=== PATIENT | female | born 1960 ===

== ENCOUNTER 2021-09-23 11:21 | Emergency (ER) | payer MEDICAID ==
[2021-09-23 12:58] LABS: Basophils % (Auto) 0.5 % (0.0-1.8); Eosinophils % (Auto) 0.6 % (0.0-4.3); Hematocrit 39.5 % (30.3-42.9); Hemoglobin 13.8 gm/dl (10.1-14.3); Lymphocytes % (Auto) 32.5 % (13.4-35.0); Mean Corpuscular HGB Conc 35 % (30-34); Mean Corpuscular Volume 102 fl (79-97); Monocytes # (Auto) 0.6 K/mm3 (0.0-0.8); Monocytes % (Auto) 8.9 % (0.0-7.3); Platelet Count 241 K/mm3 (140-440); Red Blood Count 3.86 M/mm3 (3.65-5.03); Red Cell Distribution Width 13.6 % (13.2-15.2)
[2021-09-23 13:10] LABS: BUN/Creatinine Ratio 20; Blood Urea Nitrogen 16 mg/dL (7-17); Calcium 9.5 mg/dL (8.4-10.2); Hemolysis Index 2
[2021-09-23 15:32] LABS: Mucus,Urine 2+ /HPF
[2021-09-23 15:43] LABS: Bilirubin,Urine Small (Negative); Blood,Urine Negative (Negative); Color,Urine Yellow (Yellow); Protein,Urine <15 mg/dL mg/dL (Negative)
[2021-09-23] MEDS ORDERED: ONDANSETRON 4 MG/2 ML INJ IV STA (20:58)
[2021-09-23] MEDS ORDERED: KETOROLAC 30 MG/1 ML INJ IV STA (20:58)
[2021-09-23] MEDS ORDERED: HYOSCYAMINE SUBL 0.125 MG TAB SL ONE (20:58)
--- NOTE | 2021-09-23 22:54 | Cat Scan Report ---
CT ABDOMEN AND PELVIS WITH CONTRAST HISTORY: Lower ABD Pain 70ml of [id number] . COMPARISON: None. TECHNIQUE: CT images of the abdomen and pelvis were obtained following administration of intravenous contrast. All CT scans at this location are performed using CT dose reduction for ALARA by means of automated exposure control. CONTRAST: 70 ml of intravenous contrast administered. FINDINGS: Lungs/bones: The lung bases are clear Abdomen/pelvis: There is diffuse fatty infiltration the liver. The spleen, adrenal glands, pancreas appear normal. Bilateral kidneys appear normal.. No hydronephrosis is seen. Atherosclerotic changes s een throughout the aorta. The appendix appears normal. Constipation seen throughout the colon. There may be a small amount of free fluid in the pelvis. Distal sigmoid colon rectum may have some mild wal l thickening. No bowel obstruction is seen. No dominant adenopathy is identified. Mild curvature the spine. There is a paucity of intra-abdominal fat making visualization for inflammatory change and rory luation of the bowel limited. The gallbladder is mildly contracted on the right hepatic lobe. IMPRESSION: 1. Constipation. There is mild wall thickening within the distal sigmoid colon and rectum. A mild col itis cannot be excluded. Clinical correlation and follow-up. No bowel obstruction is seen. 2. Trace free fluid in the pelvis. Appendix appears normal. 3. Diverticulosis within left colon. Signer Name: Harley Hartman MD Signed: 09/23/2021 10:49 PM Workstation Name: [id number]
--- NOTE | 2021-09-24 01:00 | Emergency Department Report ---
ED Abdominal Pain HPI - General Chief Complaint: Abdominal Pain Stated Complaint: CHEST/STOMACH PAIN Time Seen by Provider: 09/23/21 21:13 Source: patient Mode of arrival: Ambulatory Limitations: No Limitations - History of Present Illness MD Complaint: abdominal pain Severity scale (0 -10): 10 - Related Data Previous Rx's Medication Instructions Recorded Last Taken Type Hyoscyamine Subl [Levsin Sl] 0.125 mg SL Q4HR PRN #16 tablet 09/24/21 Unknown Rx Ketorolac [Toradol] 10 mg PO Q6H PRN #15 tablet 09/24/21 Unknown Rx Lactulose [Cephulac] 30 gm PO Q6HR #450 ml 09/24/21 Unknown Rx Allergies Allergy/AdvReac Type Severity Reaction Status Date / Time codeine AdvReac Nausea Verified 09/23/21 12:00 ED Review of Systems ROS: Stated complaint: CHEST/STOMACH PAIN Other details as noted in HPI Comment: All other systems reviewed and negative ED Past Medical Hx - Medications Home Medications: Home Medications Medication Instructions Recorded Confirmed Last Taken Type Hyoscyamine Subl [Levsin Sl] 0.125 mg SL Q4HR PRN #16 tablet 09/24/21 Unknown Rx Ketorolac [Toradol] 10 mg PO Q6H PRN #15 tablet 09/24/21 Unknown Rx Lactulose [Cephulac] 30 gm PO Q6HR #450 ml 09/24/21 Unknown Rx ED Physical Exam - General Limitations: No Limitations General appearance: alert, in no apparent distress - Head Head exam: Present: atraumatic, normocephalic - Eye Eye exam: Present: normal appearance - ENT ENT exam: Present: mucous membranes moist - Neck Neck exam: Present: normal inspection - Respiratory Respiratory exam: Present: normal lung sounds bilaterally. Absent: respiratory distress - Cardiovascular Cardiovascular Exam: Present: regular rate, normal rhythm. Absent: systolic murmur, diastolic murmur, rubs, gallop - GI/Abdominal GI/Abdominal exam: Present: soft, normal bowel sounds - Extremities Exam Extremities exam: Present: normal inspection - Back Exam Back exam: Present: normal inspection - Neurological Exam Neurological exam: Present: alert, oriented X3 - Psychiatric Psychiatric exam: Present: normal affect, normal mood - Skin Skin exam: Present: warm, dry, intact, normal color. Absent: rash ED Course Vital Signs 09/23/21 09/23/21 11:56 21:17 Temperature 98.1 F Pulse Rate 62 Respiratory 20 18 Rate Blood Pressure 143/83 [Right] O2 Sat by Pulse 100 Oximetry ED Medical Decision Making - Lab Data Result diagrams: 09/23/21 12:27 09/23/21 12:27 Critical care attestation.: If time is entered above; I have spent that time in minutes in the direct care of this critically ill patient, excluding procedure time. ED Disposition Disposition: HOME / SELF CARE / HOMELESS Condition: Stable Instructions: Abdominal Pain, Adult, Constipation, Adult, Abdominal Pain, Adult, [id number]-[id number], Abdominal Pain (ED) Prescriptions: Lactulose [Cephulac] 30 gm PO Q6HR #450 ml Hyoscyamine Subl [Levsin Sl] 0.125 mg SL Q4HR PRN #16 tablet PRN Reason: Spasms Ketorolac [Toradol] 10 mg PO Q6H PRN #15 tablet PRN Reason: Pain Referrals: [facility] [Provider Group] - 3-5 Days PRIMARY CARE, [Primary Care Provider] - 3-5 Days
[2021-09-24 02:18] VITALS: BP 143/72
== END 2021-09-24 01:30 | disposition home or self-care (01) ==
LOC: ED 11:21
DX: R10.9 Unspecified abdominal pain (principal)
CPT/HCPCS: 36415; 74177; 80048; 81001; 85025; 96374; 96375; 99284; J1885; J2405; Q9967